=== PATIENT | male | born 1995 | race Caucasian/White ===

== ENCOUNTER 2016-04-11 19:45 | Inpatient (IN) | payer MEDICAID, OTHER ==
--- NOTE | 2016-04-11 20:05 | ED ---
General Adult HPI - General Source: patient, police, EMS, RN notes reviewed, old records reviewed Mode of arrival: EMS Limitations: no limitations <Kevin Rivera - Last Filed: 04/11/16 20:13> <Bruno Phan - Last Filed: 04/11/16 22:50> - General Chief complaint: Psychiatric Symptoms Stated complaint: mental health Time Seen by Provider: 04/11/16 19:56 - History of Present Illness Initial comments: This is a 21-year-old male here for evaluation of suicidal thoughts, suicidal complaints. Patient did coming today. Patient's were in by EMS and PD his neighbor her bystander called for patient suicidal issues, patient is petition for psychiatric evaluation patient denies drugs or alcohol abuse patient does have recent finding of mass which could be recurrence of testicular cancer ( Kevin Rivera) - Related Data Home Medications Medication Instructions Recorded Confirmed No Known Home Medications [No 04/11/16 04/11/16 Known Home Medications] Allergies Allergy/AdvReac Type Severity Reaction Status Date / Time venom-honey bee Allergy Swelling Verified 04/11/16 20:13 [bee venom (honey bee)] Review of Systems ROS Other: All systems not noted in ROS Statement are negative. <Kevin Rivera - Last Filed: 04/11/16 20:13> ROS Other: All systems not noted in ROS Statement are negative. <Bruno Phan - Last Filed: 04/11/16 22:50> ROS Statement: Those systems with pertinent positive or pertinent negative responses have been documented in the HPI. Past Medical History Past Medical History: No Reported History History of Any Multi-Drug Resistant Organisms: None Reported Additional Past Surgical History / Comment(s): testicular sx, ear tubes Past Psychological History: Depression Smoking Status: Current every day smoker Past Alcohol Use History: None Reported Past Drug Use History: Marijuana <Kevin Rivera - Last Filed: 04/11/16 20:13> General Exam Limitations: no limitations General appearance: alert, in no apparent distress Head exam: Present: atraumatic, normocephalic, normal inspection Eye exam: Present: normal appearance, PERRL, EOMI. Absent: scleral icterus, conjunctival injection, periorbital swelling ENT exam: Present: normal exam, mucous membranes moist Neck exam: Present: normal inspection. Absent: tenderness, meningismus, lymphadenopathy Respiratory exam: Present: normal lung sounds bilaterally. Absent: respiratory distress, wheezes, rales, rhonchi, stridor Cardiovascular Exam: Present: regular rate, normal rhythm, normal heart sounds. Absent: systolic murmur, diastolic murmur, rubs, gallop, clicks GI/Abdominal exam: Present: soft, normal bowel sounds. Absent: distended, tenderness, guarding, rebound, rigid Extremities exam: Present: normal inspection, full ROM, normal capillary refill. Absent: tenderness, pedal edema, joint swelling, calf tenderness Back exam: Present: normal inspection Neurological exam: Present: alert, oriented X3, CN II-XII intact Psychiatric exam: Present: normal affect, normal mood Skin exam: Present: warm, dry, intact, normal color. Absent: rash <Kevin Rivera - Last Filed: 04/11/16 20:13> Course <Kevin Rivera - Last Filed: 04/11/16 20:13> <Bruno Phan - Last Filed: 04/11/16 22:50> Vital Signs 04/11/16 19:53 Temperature 98.6 F Pulse Rate 60 Respiratory 18 Rate Blood Pressure 133/79 O2 Sat by Pulse 99 Oximetry - Reevaluation(s) Reevaluation #1: 04/11/16 20:05 Medically clear for evaluation (Kevin Rivera) Reevaluation #2: 04/11/16 22:49 The patient was endorsed to me at our shift change pending evaluation by psychiatry. Patient will be admitted for inpatient treatment I did fill out a clinical certification on the patient. (Bruno Phan) Medical Decision Making - Lab Data Result diagrams: 04/11/16 21:45 04/11/16 21:45 <Bruno Phan - Last Filed: 04/11/16 22:50> - Lab Data Lab Results 04/11/16 04/11/16 04/11/16 Range/Units 21:45 21:45 21:45 WBC 7.0 (3.8-10.6) k/uL RBC 5.36 (4.30-5.90) m/uL Hgb 16.3 (13.0-17.5) gm/dL Hct 48.2 (39.0-53.0) % MCV 90.0 (80.0-100.0) fL MCH 30.3 (25.0-35.0) pg MCHC 33.7 (31.0-37.0) g/dL RDW 12.6 (11.5-15.5) % Plt Count 233 (150-450) k/uL Neutrophils % 53 % Lymphocytes % 36 % Monocytes % 6 % Eosinophils % 2 % Basophils % 0 % Neutrophils # 3.7 (1.3-7.7) k/uL Lymphocytes # 2.5 (1.0-4.8) k/uL Monocytes # 0.4 (0-1.0) k/uL Eosinophils # 0.1 (0-0.7) k/uL Basophils # 0.0 (0-0.2) k/uL Sodium 143 (137-145) mmol/L Potassium 4.0 (3.5-5.1) mmol/L Chloride 102 (98-107) mmol/L Carbon Dioxide 28 (22-30) mmol/L Anion Gap 13 mmol/L BUN 14 (9-20) mg/dL Creatinine 0.82 (0.66-1.25) mg/dL Est GFR (MDRD) Af Amer >60 (>60 ml/min/1.73 sqM) Est GFR (MDRD) Non-Af >60 (>60 ml/min/1.73 sqM) Glucose 93 (74-99) mg/dL Calcium 10.6 H (8.4-10.2) mg/dL Total Bilirubin 0.9 (0.2-1.3) mg/dL AST 34 (17-59) U/L ALT 60 (21-72) U/L Alkaline Phosphatase 65 (38-126) U/L Total Protein 8.6 H (6.3-8.2) g/dL Albumin 5.1 H (3.5-5.0) g/dL Urine Opiates Screen Not Detected (NotDetected) Ur Oxycodone Screen Not Detected (NotDetected) Urine Methadone Screen Not Detected (NotDetected) Ur Propoxyphene Screen Not Detected (NotDetected) Ur Barbiturates Screen Not Detected (NotDetected) U Tricyclic Antidepress Not Detected (NotDetected) Ur Phencyclidine Scrn Not Detected (NotDetected) Ur Amphetamines Screen Not Detected (NotDetected) U Methamphetamines Scrn Not Detected (NotDetected) U Benzodiazepines Scrn Detected H (NotDetected) Urine Cocaine Screen Not Detected (NotDetected) U Marijuana (THC) Screen Detected H (NotDetected) Disposition <Kevin Rivera - Last Filed: 04/11/16 20:13> <Bruno Phan - Last Filed: 04/11/16 22:50> Clinical Impression: Depression, Suicidal ideation Disposition: TRANSFER TO PSYCH HOSP/UNIT Condition: Stable
[2016-04-11 21:54] LABS: Basophils % (A) 0 %; CH 31.4; CHCM 35.1; Eosinophils # (A) 0.1 k/uL (0-0.7); Eosinophils % (A) 2 %; HCT 48.2 % (39.0-53.0); HDW 2.58; HGB 16.3 gm/dL (13.0-17.5); Luc # (Auto) 0.19; Luc % (Auto) 3; Lymphocytes # (A) 2.5 k/uL (1.0-4.8); Lymphocytes % (A) 36 %; MCH 30.3 pg (25.0-35.0); MCHC 33.7 g/dL (31.0-37.0); Mean Platelet Volume 6.8; Monocytes # (A) 0.4 k/uL (0-1.0); Monocytes % (A) 6 %; Neutrophils # (A) 3.7 k/uL (1.3-7.7); Neutrophils % (A) 53 %; RBC 5.36 m/uL (4.30-5.90); RDW 12.6 % (11.5-15.5); WBC (Perox) 6.76
[2016-04-11 22:05] LABS: ALT 60 U/L (21-72); AST 34 U/L (17-59); Alkaline Phosphatase 65 U/L (38-126); Anion Gap 13 mmol/L; Blood Urea Nitrogen 14 mg/dL (9-20); Calcium 10.6 mg/dL (8.4-10.2); Carbon Dioxide 28 mmol/L (22-30); Chloride 102 mmol/L (98-107); Glucose 93 mg/dL (74-99); Non-African American GFR(MDRD) >60 (>60 ml/min/1.73 sqM); Sodium 143 mmol/L (137-145); Total Bilirubin 0.9 mg/dL (0.2-1.3); Total Protein 8.6 g/dL (6.3-8.2)
[2016-04-11 22:34] LABS: Hepatitis B Surface Ag Index 0.09
[2016-04-11 22:39] LABS: Hepatitis B Core IgM Index 0.07
[2016-04-11 22:52] LABS: Hepatitis C Virus IgG Ab Reactive (Negative)
[2016-04-11] MEDS ORDERED: MAGNESIUM HYDROXIDE 2,400 MG/10 ML CUP PO PRN (23:56)
[2016-04-11] MEDS ORDERED: MAG HYDROX/AL HYDROX/SIMETH 30 ML CUP PO PRN (23:56)
[2016-04-11] MEDS ORDERED: ACETAMINOPHEN TAB 325 MG TAB PO PRN (23:56)
[2016-04-11] MEDS ORDERED: LORazepam 2 MG/ML SYRINGE IM PRN (23:58)
[2016-04-12 00:16] LABS: Appearance,Urine Clear (Clear); Bilirubin,Urine Negative (Negative); Glucose,Urine (UA) Negative (Negative); Ketones,Urine Negative (Negative); Leukocyte Esterase,Urine Negative (Negative); Nitrite,Urine Negative (Negative); Protein,Urine Negative (Negative); Specific Gravity,Urine 1.018 (1.001-1.035); UA Billing (MACRO vs. MICRO) CHEM; Urobilinogen,Urine <2.0 mg/dL (<2.0)
--- NOTE | 2016-04-12 13:20 | P.HP ---
Psychiatric H&P - . H&P Date: 04/12/16 History & Physical: IDENTIFYING DATA: He is a 21-year-old single male who presented to unit involuntarily. HISTORY OF PRESENT ILLNESS: A commercial escrow officer completed a Petition/Application for Hospitalization. On the petition the commercial escrow officer wrote "received 911 call-reporting that Quang had text that her friend, advising that he was going to slit his throat. Upon arrival I observe Quang picking up a razor blade and cutting his neck and arm. I forced entry into his residence and took him into protective custody. Quang stated he wanted to kill himself due to recent cancer diagnosis." Vince stated that he become acutely distressed on Saturday after his family physician told him that he might have testicular cancer. He stated he did not feel he had anyone with him to talk about his concerns. While he was communicating with friends on Facebook he talked about his worries including histhought of not wanting to live if he has cancer. His friend took his concerns seriously and contacted emergency services. He stated that he made superficial stressor lacerations to his arm and the back of the neck because he not tolerate the level of emotional distress. He denied that the intent was to end his life. He denied that he had thoughts of or suicide prior to the physician's visit. He denied prior suicide attempts and denied engaging in prior nonlethal self-harm such as cutting. His other concerns including living with his mother and her boyfriend and delinquent child support payments. He denied current feelings of sadness, hopelessness or helplessness. He denied psychotic symptoms such as auditory or visual hallucinations, ideas reference, thought insertion or thought broadcasting. He described increased anxiety since the physician's visit but denied symptoms suggestive of panic attack. He denied symptoms suggestive of obsessions or compulsions. He smokes marijuana daily basis and "occasionally" takes benzodiazepines. He denied recent use of opiates, amphetamines, methamphetamine or cocaine. His urine drug screen was positive for benzodiazepines and marijuana. He completed the Navas Depression Inventory. His total score was 11 consistent with minimal symptoms of depression. The only item that he rated as moderate was changes in appetite. On the suicide question he selected item 0 - "I don't have any thoughts of killing myself." PAST PSYCHIATRIC HISTORY: He was hospitalized twice ([facility]) as a child beginning at age 6 or 7 for behavioral problems. He met with a counselor after discharge from hospitals and intermittently into his adolescence. He denied that he had been prescribed psychotropic medications including stimulant medications. PAST MEDICAL HISTORY: He is a purported history of testicular cancer diagnosed when he was an . He diagnosed with hepatitis C "about 2 years ago". He stated that he has not been treated for the hepatitis C because his insurance will not cover the medications. ALLERGIES: He has no drug ALLERGIES SUBSTANCE USE HISTORY: He has a history of marijuana, cocaine, crack cocaine, methamphetamine and heroin abuse. He stated that he has not used crack cocaine , methamphetamine or heroin and "1-2 years". He began smoking marijuana in the sixth grade. In the 10th grade and began using crack cocaine. He used heroin for approximately 3-4 months. He stated that he injected heroin "a few times". He stopped using all drugs (with the exception of marijuana) after learning that his girlfriend was (one half years ago). He smokes marijuana daily basis and does not perceive his marijuana use as a problem. He he believes that he contracted hepatitis C from his heroin use. He participated in a substance abuse program while he was in the [facility]. He has attended . FAMILY PSYCHIATRIC/SUBSTANCE USE HISTORY: He is unaware of family history of mental illness LEGAL HISTORY: He denied any is currently on probation, parole or has pending charges. He is convicted with breaking and entry and grand theft auto when he was 15 or 16 years old. He [facility] a [facility]. He [facility] 4 [facility]. Once he turned 17 he was transferred to [facility] then sentence to [address] [facility]. He described difficulties in [facility] with frequent conflict and fights with guards. SOCIAL HISTORY: He was born and raised in the [place] area to single mother. He has 2 stepsisters from mother's prior marriage. He alleged that his father was not involved in his upbringing. He did not complete high school have been convicted of felony in 10th grade. He did not attend high school while he was in [facility] and has not obtained a GED. He has one child, Esteban, who is 7 months old and in the custody of her biological mother. He described a conflictual relationship with the child's mother. He moved back to [place] about 2 weeks prior to this admission. He stated that lately 2015 he went to [place] to live temporarily with his sisters because she was concerned that he would be incarcerated for nonpayment of child support. He spent a "few weeks" in [place] with friends before returning to [place]. He has been living with his mother and her since he returned to [place]. He recently found a part-time job with a [employer]. MENTAL STATUS EXAM: He presented as a casually groomed 21-year-old male who had superficial abrasions on his right forearm in the back of his neck. He maintained eye contact and attended the interview. He had no prominent physical abnormalities. He had a blunted but bright facial expression. He was alert and oriented to person, place and time. He showed no abnormality of psychomotor activity. He had no abnormal involuntary movements. His gait was slow but steady. His speech was spontaneous with normal rate but decreased rhythm. His affect was dysphoric. He denied suicidal ideation or wishes. He denied homicidal ideation. She denied depressive cognitions such as hopelessness, helplessness or worthlessness. He ruminated about the hospitalization and the effect that it would have on his recent unemployment. He denied obsessions or compulsions. He did not express ideas reference or paranoid ideation. His thinking was concrete but his associations were coherent and logical. He did not demonstrate clang associations, perseveration, neologisms or blocking. He denied hallucinations did not appear to be responding to internal stimuli. Global impression of intellect is average. He is aware of the causes of his distress and agreed to referral for outpatient mental health treatment. STRENGTHS: Supportive family, good health, no current legal problems, able to maintain abstinence to heroin, methamphetamine and cocaine, recent unemployment WEAKNESSES: Conflictual relationship with his significant other, recent diagnosis of testicular tumor, history of antisocial behavior, impulsive behavior and poor coping skills. IMPRESSION: He is a 21-year-old single male who presented to unit involuntarily after expressing suicidal thoughts and engaging in nonlethal self- harm behavior. The cuts that he made to his arm and neck are very superficial and did not require first aid or medical intervention. His history of early onset behavioral problems with 2 admissions to child/adolescent units. He also has a history of abuse of several drugs including heroin, methamphetamine and cocaine. He is able to maintain abstinence from these drugs for the last one and half years out of concern for his relationship with his young child. The onset of his acute distress is related to recent diagnosis of testicular tumor. We should treat him an inpatient basis with a combination of multimodal therapy until we can fully appreciate his self-harm risk. 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 History of childhood onset, disorder RECOMMENDATION: Obtained a voluntary admission. Continued suicide precautions with 15 minute checks. Obtain collateral information from family. Consult medicine service for initial physical examination and medical history. Consider an antidepressant. Social work to assist with referral to community mental health services after discharge. Allergies Allergy/AdvReac Type Severity Reaction Status Date / Time venom-honey bee Allergy Swelling Verified 04/11/16 20:13 [bee venom (honey bee)] Vital Signs Temp 97.6 F 04/12/16 06:54 Pulse 52 L 04/12/16 06:54 Resp 18 04/12/16 06:54 BP 108/66 04/12/16 06:54 Pulse Ox 96 04/11/16 23:36 Intake & Output 04/11/16 04/12/16 04/12/16 18:59 06:59 18:59 Weight 55 kg Laboratory Last Values WBC 7.0 k/uL (3.8-10.6) 04/11/16 21:45 RBC 5.36 m/uL (4.30-5.90) 04/11/16 21:45 Hgb 16.3 gm/dL (13.0-17.5) 04/11/16 21:45 Hct 48.2 % (39.0-53.0) 04/11/16 21:45 MCV 90.0 fL (80.0-100.0) 04/11/16 21:45 MCH 30.3 pg (25.0-35.0) 04/11/16 21:45 MCHC 33.7 g/dL (31.0-37.0) 04/11/16 21:45 RDW 12.6 % (11.5-15.5) 04/11/16 21:45 Plt Count 233 k/uL (150-450) 04/11/16 21:45 Neutrophils % 53 % 04/11/16 21:45 Lymphocytes % 36 % 04/11/16 21:45 Monocytes % 6 % 04/11/16 21:45 Eosinophils % 2 % 04/11/16 21:45 Basophils % 0 % 04/11/16 21:45 Neutrophils # 3.7 k/uL (1.3-7.7) 04/11/16 21:45 Lymphocytes # 2.5 k/uL (1.0-4.8) 04/11/16 21:45 Monocytes # 0.4 k/uL (0-1.0) 04/11/16 21:45 Eosinophils # 0.1 k/uL (0-0.7) 04/11/16 21:45 Basophils # 0.0 k/uL (0-0.2) 04/11/16 21:45 Sodium 143 mmol/L (137-145) 04/11/16 21:45 Potassium 4.0 mmol/L (3.5-5.1) 04/11/16 21:45 Chloride 102 mmol/L (98-107) 04/11/16 21:45 Carbon Dioxide 28 mmol/L (22-30) 04/11/16 21:45 Anion Gap 13 mmol/L 04/11/16 21:45 BUN 14 mg/dL (9-20) 04/11/16 21:45 Creatinine 0.82 mg/dL (0.66-1.25) 04/11/16 21:45 Est GFR (MDRD) Af Amer >60 (>60 ml/min/1.73 sqM) 04/11/16 21:45 Est GFR (MDRD) Non-Af >60 (>60 ml/min/1.73 sqM) 04/11/16 21:45 Glucose 93 mg/dL (74-99) 04/11/16 21:45 Calcium 10.6 mg/dL (8.4-10.2) H 04/11/16 21:45 Total Bilirubin 0.9 mg/dL (0.2-1.3) 04/11/16 21:45 AST 34 U/L (17-59) 04/11/16 21:45 ALT 60 U/L (21-72) 04/11/16 21:45 Alkaline Phosphatase 65 U/L (38-126) 04/11/16 21:45 Total Protein 8.6 g/dL (6.3-8.2) H 04/11/16 21:45 Albumin 5.1 g/dL (3.5-5.0) H 04/11/16 21:45 TSH 3.320 mIU/L (0.465-4.680) 04/11/16 21:45 Urine Color Yellow 04/11/16 21:45 Urine Appearance Clear (Clear) 04/11/16 21:45 Urine pH 7.0 (5.0-8.0) 04/11/16 21:45 Ur Specific [place] 1.018 (1.001-1.035) 04/11/16 21:45 Urine Protein Negative (Negative) 04/11/16 21:45 Urine Glucose (UA) Negative (Negative) 04/11/16 21:45 Urine Ketones Negative (Negative) 04/11/16 21:45 Urine Blood Negative (Negative) 04/11/16 21:45 Urine Nitrate Negative (Negative) 04/11/16 21:45 Urine Bilirubin Negative (Negative) 04/11/16 21:45 Urine Urobilinogen <2.0 mg/dL (<2.0) 04/11/16 21:45 Ur Leukocyte Esterase Negative (Negative) 04/11/16 21:45 Urine Opiates Screen Not Detected (NotDetected) 04/11/16 21:45 Ur Oxycodone Screen Not Detected (NotDetected) 04/11/16 21:45 Urine Methadone Screen Not Detected (NotDetected) 04/11/16 21:45 Ur Propoxyphene Screen Not Detected (NotDetected) 04/11/16 21:45 Ur Barbiturates Screen Not Detected (NotDetected) 04/11/16 21:45 U Tricyclic Antidepress Not Detected (NotDetected) 04/11/16 21:45 Ur Phencyclidine Scrn Not Detected (NotDetected) 04/11/16 21:45 Ur Amphetamines Screen Not Detected (NotDetected) 04/11/16 21:45 U Methamphetamines Scrn Not Detected (NotDetected) 04/11/16 21:45 U Benzodiazepines Scrn Detected (NotDetected) H 04/11/16 21:45 Urine Cocaine Screen Not Detected (NotDetected) 04/11/16 21:45 U Marijuana (THC) Screen Detected (NotDetected) H 04/11/16 21:45 Hepatitis A IgM Ab NEGATIVE 04/11/16 21:45 Hep Bs Antigen Negative 04/11/16 21:45 Hep B Core IgM Ab NEGATIVE 04/11/16 21:45 Hep C IgG Ab Reactive (Negative) 04/11/16 21:45 04/12/16 08:16 04/12/16 11:05 04/12/16 11:59
[2016-04-12 13:25] VITALS: RESP 16; BMI 19.5
[2016-04-12] MEDS: NICOTINE 21MG/24HR PATCH TRANSDERM SCH (13:28)
--- NOTE | 2016-04-12 14:17 | P.CONS ---
History of Present Illness - Reason for Consult Consult date: 04/12/16 Medical management - History of Present Illness This is a 21-year-old male. His primary care physician is Dr. Camacho. He states he follows with Dr. Camacho one time per month. He does have past history of hepatitis C due to IV drug use of heroin, regular marijuana use, tobacco use and dependence. Patient states that he has been feeling down about things and he just wanted to hurt himself and ended up cutting his right forearm. He has not been on any psychiatric meds. He denies any previous mental health unit admissions. He denies any treatment for depression. Regarding the hepatitis C, he states he follows with Dr. Ngo but found out that his insurance did not cover treatment so he stopped going. He states he has been clean from heroin for 2 years. Patient was brought into [facility] emergency center by EMS and police. He was petitioned for psychiatric evaluation. He has been admitted to the mental health unit. Calcium is 10.6 and total protein 8.6, TSH 3.3-0. Urinalysis was negative. Urine drug screen detected benzodiazepines and marijuana. Hepatitis panel C was positive. Review of Systems All systems: negative Constitutional: Denies chills, Denies fever Eyes: denies blurred vision, denies pain Ears, nose, mouth and throat: Denies headache, Denies sore throat Cardiovascular: Denies chest pain, Denies shortness of breath Respiratory: Denies cough Gastrointestinal: Denies abdominal pain, Denies diarrhea, Denies nausea, Denies vomiting Musculoskeletal: Denies myalgias Integumentary: Denies pruritus, Denies rash Neurological: Denies numbness, Denies weakness Psychiatric: Reports depression, Reports hopelessness, Reports suicidal ideation , Denies anxiety Endocrine: Denies fatigue, Denies weight change Past Medical History Past Medical History: No Reported History Additional Past Medical History / Comment(s): Hepatitis C from IV drug use. History of Any Multi-Drug Resistant Organisms: None Reported Additional Past Surgical History / Comment(s): testicular sx, ear tubes Past Psychological History: Depression Smoking Status: Current every day smoker Past Alcohol Use History: None Reported Additional Past Alcohol Use History / Comment(s): Patient is a smoker one and half packs of cigarettes per day since he was 11 years of age. He smokes marijuana on a daily basis. He does not have any medical marijuana card. He denies any alcohol use. He is single and has one son with no major medical problems. Patient does have history of paranoid use and has been clean for 2 years. Past Drug Use History: Marijuana - Past Family History Father Additional Family Medical History / Comment(s): Father is age 47 with history of hypertension. Mother Additional Family Medical History / Comment(s): Mother is alive at age 42 and patient does not know any of her medical history. Patient is an only child with no siblings. Medications and Allergies Home Medications Medication Instructions Recorded Confirmed Type No Known Home Medications [No 04/11/16 04/11/16 History Known Home Medications] Allergies Allergy/AdvReac Type Severity Reaction Status Date / Time venom-honey bee Allergy Swelling Verified 04/11/16 20:13 [bee venom (honey bee)] Physical Exam Vitals: Vital Signs Temp Pulse Pulse Resp BP BP Pulse Ox 04/12/16 06:54 97.6 F 52 L 18 108/66 04/11/16 23:36 98.1 F 99 20 119/78 96 04/11/16 22:55 98 F 60 18 120/64 99 Intake and Output 04/11/16 04/12/16 04/12/16 22:59 06:59 14:59 Other: Weight 55 kg Gen: This is a 21-year-old male. He is cooperative and appears to be in no acute distress. HEENT: Head is atraumatic, normocephalic. Pupils equal, round. Sclerae is anicteric. NECK: Supple. No JVD. No lymphadenopathy. No thyromegaly. LUNGS: Clear to auscultation. No wheezes or rhonchi. No intercostal retractions. HEART: Regular rate and rhythm. No murmur. ABDOMEN: Soft. Bowel sounds are present. No masses. No tenderness. EXTREMITIES: No pedal edema. No calf tenderness. NEUROLOGICAL: Patient is awake, alert and oriented x3. Cranial nerves 2 through 12 are grossly intact. Results CBC & Chem 7: 04/11/16 21:45 04/11/16 21:45 Assessment and Plan Plan: 1. Depression with suicidal ideation. Patient admitted to the mental health unit. Continue current plan of care. 2. Tobacco use and dependence. Nicotine patch. 3. History of hepatitis C not currently treated. 4. Regular marijuana use. Continue as in #1. 5. History of heroin use, and clean for 2 years. 6. Hypercalcemia of unclear significance. Parathyroid hormone level ordered. Impression and plan of care have been directed as dictated by the signing physician. Geneva Valderrama nurse practitioner acting as scribe for signing physician. Time with Patient: Greater than 30
[2016-04-12] MEDS: LORazepam 1 MG TAB PO PRN ×2 (14:35→22:08)
[2016-04-13 06:32] VITALS: TEMP 97.6
[2016-04-13] MEDS: NICOTINE 21MG/24HR PATCH TRANSDERM SCH (08:52)
[2016-04-13] MEDS: LORazepam 1 MG TAB PO PRN (08:53)
[2016-04-13 10:06] VITALS: BP 152/85; PULSE 81
[2016-04-13 10:26] LABS: ALT 62 U/L (21-72); AST 42 U/L (17-59); Alkaline Phosphatase 67 U/L (38-126); Anion Gap 15 mmol/L; Blood Urea Nitrogen 19 mg/dL (9-20); Calcium 10.8 mg/dL (8.4-10.2); Carbon Dioxide 25 mmol/L (22-30); Chloride 103 mmol/L (98-107); Glucose 93 mg/dL (74-99); Non-African American GFR(MDRD) >60 (>60 ml/min/1.73 sqM); Potassium 4.4 mmol/L (3.5-5.1); Sodium 143 mmol/L (137-145); Total Bilirubin 1.3 mg/dL (0.2-1.3); Total Protein 8.8 g/dL (6.3-8.2)
--- NOTE | 2016-04-13 13:11 | P.DS ---
Providers Date of admission: 04/11/16 22:20 Attending physician: Charles House MD Consults: 04/11/16 23:56 Consult Physician Routine Consulting Provider: Charles Rene Consult Reason/Comments: Follow Up H & P Do you want consulting provider notified?: Yes Primary care physician: Stated None - Discharge Diagnosis(es) (1) Adjustment disorder with mixed disturbance of emotions and conduct Current Visit: Yes Status: Acute Priority: Medium (2) Deliberate self-cutting Current Visit: Yes Status: Acute Priority: Medium Hospital Course: He is a 21-year-old single male who presented to unit involuntarily. A precinct i police sergeant completed a Petition/Application for Hospitalization. On the petition the precinct i police sergeant wrote "received 911 call-reporting that Quang had text that her friend, advising that he was going to slit his throat. Upon arrival I observe Quang picking up a razor blade and cutting his neck and arm. I forced entry into his residence and took him into protective custody. Quang stated he wanted to kill himself due to recent cancer diagnosis." Vince stated that he become acutely distressed on Saturday after his family physician told him that he might have testicular cancer. He stated he did not feel he had anyone with him to talk about his concerns. While he was communicating with friends on Facebook he talked about his worries including histhought of not wanting to live if he has cancer. His friend took his concerns seriously and contacted emergency services. He stated that he made superficial stressor lacerations to his arm and the back of the neck because he not tolerate the level of emotional distress. He denied that the intent was to end his life. He denied that he had thoughts of or suicide prior to the physician's visit. He denied prior suicide attempts and denied engaging in prior nonlethal self-harm such as cutting. His other concerns including living with his mother and her boyfriend and delinquent child support payments. He denied current feelings of sadness, hopelessness or helplessness. He denied psychotic symptoms such as auditory or visual hallucinations, ideas reference, thought insertion or thought broadcasting. He described increased anxiety since the physician's visit but denied symptoms suggestive of panic attack. He denied symptoms suggestive of obsessions or compulsions. He smokes marijuana daily basis and "occasionally" takes benzodiazepines. He denied recent use of opiates, amphetamines, methamphetamine or cocaine. His urine drug screen was positive for benzodiazepines and marijuana. He completed the Navas Depression Inventory. His total score was 11 consistent with minimal symptoms of depression. The only item that he rated as moderate was changes in appetite. On the suicide question he selected item 0 - "I don't have any thoughts of killing myself." He was hospitalized twice ([facility]) as a child beginning at age 6 or 7 for behavioral problems. He met with a counselor after discharge from hospitals and intermittently into his adolescence. He denied that he had been prescribed psychotropic medications including stimulant medications. He is a purported history of testicular cancer diagnosed when he was an infant. He diagnosed with hepatitis C "about 2 years ago". He stated that he has not been treated for the hepatitis C because his insurance will not He has a history of marijuana, cocaine, crack cocaine, methamphetamine and heroin abuse. He stated that he has not used crack cocaine, methamphetamine or heroin and "1-2 years". He began smoking marijuana in the sixth grade. In the 10th grade and began using crack cocaine. He used heroin for approximately 3-4 months. He stated that he injected heroin "a few times". He stopped using all drugs (with the exception of marijuana) after learning that his girlfriend was (one half years ago). He smokes marijuana daily basis and does not perceive his marijuana use as a problem. He he believes that he contracted hepatitis C from his heroin use. He participated in a substance abuse program while he was in the [facility]. He has attended . HOSPITAL COURSE: We admitted him to the psychiatric unit under the care of this technical proposal writer. We provided a biopsychosocial assessment. The delivery consultant geriatric aide completed the initial physical exam and medical history. The geriatric aide diagnosed tobacco use disorder and a history of hepatitis C. The interest did not recommend medical treatment. At admission he denied suicidal ideation, plan or intent and did not meet judicial criteria for involuntary hospitalization. However, he consented to a voluntary admission. We only prescribed lorazepam 1 mg twice a day when necessary because she denied significant symptoms of depression. He was initially reclusive and refused to participate in therapeutic groups and activities. As he became more comfortable with the unit he attended therapeutic groups. He identified living with his mother and her boyfriend as a stress contributing to his self cutting. He spoke with his girlfriend and arrange live with her and their 7-month-old infant after discharge. Throughout the hospitalization he denied thoughts of or suicide. He expressed regret over cutting himself and talked about feeling overwhelmed after his physician told him that he may have testicular cancer. He expressed interest to received outpatient mental health services. He requested a prescription for "something" for anxiety. I explained my reluctance to prescribe him a benzodiazepine given his history of substance use problems. We discuss options and agreed to a trial of Seroquel 25 mg at bedtime for anxiety or sleep. Patient Condition at Discharge: Fair Plan - Discharge Summary New Discharge Prescriptions: Nicotine 21Mg/24Hr Patch [Habitrol] 1 patch TRANSDERM DAILY #14 patch QUEtiapine [SEROquel] 25 mg PO HS #30 tab Discharge Medication List Nicotine 21Mg/24Hr Patch [Habitrol] 1 patch TRANSDERM DAILY #14 patch 04/13/16 [ Rx] QUEtiapine [SEROquel] 25 mg PO HS #30 tab 04/13/16 [Rx] Follow up Appointment(s)/Referral(s): [facility] [Outside] - 04/16/16 2:00 pm (Mariella Please arribe at 1:30 for paper work ) None,Stated [Primary Care Provider] - 1 Week Discharge Disposition: HOME SELF-CARE
[2016-04-13] MEDS ORDERED: QUEtiapine 25 MG TAB PO SCH (21:00)
== END 2016-04-13 14:02 | disposition home or self-care (01) | DRG 882 ==
LOC: EC 19:45 → 3MHU 22:20
PROVIDERS: ADMIT Psychiatry & Neurology Psychiatry; ATTEND Psychiatry & Neurology Psychiatry
DX: F43.25 Adjustment disorder with mixed disturbance of emotions and conduct (principal); R45.851 Suicidal ideations; E83.52 Hypercalcemia; C62.90 Malignant neoplasm of unspecified testis, unspecified whether descended or undescended; X78.9XXA Intentional self-harm by unspecified sharp object, initial encounter; F41.9 Anxiety disorder, unspecified; F13.90 Sedative, hypnotic, or anxiolytic use, unspecified, uncomplicated; F12.90 Cannabis use, unspecified, uncomplicated; B19.20 Unspecified viral hepatitis C without hepatic coma; F17.210 Nicotine dependence, cigarettes, uncomplicated; Z87.898 Personal history of other specified conditions
CPT/HCPCS: 36415; 80053; 80074; 80306; 81003; 82075; 83970; 84443; 85025; 99285

== ENCOUNTER 2017-12-09 16:16 | Emergency (ER) | payer OTHER ==
[2017-12-09 16:52] VITALS: TEMP 98.3
[2017-12-09] MEDS ORDERED: methylPREDNISolone SOD SUCCI 125 MG/2 ML VIAL IV STA (17:33)
[2017-12-09] MEDS ORDERED: SODIUM CHLORIDE 0.9% 1,000 ML IV STA (17:33)
[2017-12-09] MEDS ORDERED: IPRATROPIUM-ALBUTEROL 3 ML NEB INHALATION STA (17:33)
--- NOTE | 2017-12-09 17:37 | ED ---
URI HPI - General Chief Complaint: Upper Respiratory Infection Stated Complaint: COUGHING, CARROLL X 6 WEEKS Time Seen by Provider: 12/09/17 17:20 Source: patient, family, RN notes reviewed Mode of arrival: ambulatory Limitations: no limitations - History of Present Illness Initial Comments: This is a 22-year-old male with a benign past medical history who does smoke one half pack cigarettes per day but no family history or personal history of asthma or lung problems and states he had gas that well for 5 weeks ago sinus infection and cold symptoms he was treated by his private medical doctor with amoxicillin it did seem to clear up for a few days but then he started having a cough and congestion again. He was placed on Augmentin but states he still has chills, cold flashes having trouble breathing he does cough he has phlegm but he can get phlegm up. He did try his mothers inhaler today and it did help somewhat. He denies any chest pain nausea vomiting or other symptoms. No other modifying factors at this time MD Complaint: cough, other - Related Data Previous Rx's Medication Instructions Recorded Nicotine 21Mg/24Hr Patch [Habitrol] 1 patch TRANSDERM DAILY #14 patch 04/13/16 QUEtiapine [SEROquel] 25 mg PO HS #30 tab 04/13/16 Ipratropium/Albuterol Sulfate 2 puff INHALATION QID #1 inhaler 12/09/17 [Combivent Respimat Inhaler] predniSONE 20 mg PO BID #10 tab 12/09/17 Allergies Allergy/AdvReac Type Severity Reaction Status Date / Time venom-honey bee Allergy Swelling Verified 12/09/17 18:52 [bee venom (honey bee)] Review of Systems ROS Statement: Those systems with pertinent positive or pertinent negative responses have been documented in the HPI. ROS Other: All systems not noted in ROS Statement are negative. 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 History of Any Multi-Drug Resistant Organisms: None Reported Past Surgical History: Ear Surgery Additional Past Surgical History / Comment(s): testicular sx, ear tubes Past Anesthesia/Blood Transfusion Reactions: No Reported Reaction Past Psychological History: Depression Smoking Status: Current every day smoker Past Alcohol Use History: None Reported Past Drug Use History: Marijuana - Past Family History Father Additional Family Medical History / Comment(s): Father is age 47 with history of hypertension. Mother Additional Family Medical History / Comment(s): Mother is alive at age 42 and patient does not know any of her medical history. Patient is an only child with no siblings. General Exam - General Exam Comments Initial Comments: This is a well-developed well-nourished awake alert oriented 3 male Limitations: no limitations General appearance: alert, in no apparent distress Head exam: Present: atraumatic, normocephalic, normal inspection Eye exam: Present: normal appearance, PERRL, EOMI. Absent: scleral icterus, conjunctival injection, periorbital swelling ENT exam: Present: normal exam, mucous membranes moist Neck exam: Present: normal inspection. Absent: tenderness, meningismus, lymphadenopathy Respiratory exam: Present: decreased breath sounds. Absent: respiratory distress, wheezes, rales, rhonchi, stridor Cardiovascular Exam: Present: regular rate, normal rhythm, normal heart sounds. Absent: systolic murmur, diastolic murmur, rubs, gallop, clicks GI/Abdominal exam: Present: soft, normal bowel sounds. Absent: distended, tenderness, guarding, rebound, rigid Extremities exam: Present: normal inspection, full ROM, normal capillary refill. Absent: tenderness, pedal edema, joint swelling, calf tenderness Back exam: Present: normal inspection Neurological exam: Present: alert, oriented X3, CN II-XII intact Psychiatric exam: Present: normal affect, normal mood Skin exam: Present: warm, dry, intact, normal color. Absent: rash Course Vital Signs 12/09/17 12/09/17 12/09/17 16:51 17:14 17:30 Temperature 98.3 F Pulse Rate 84 Respiratory 20 22 22 Rate Blood Pressure 125/71 116/80 O2 Sat by Pulse 99 97 Oximetry 12/09/17 12/09/17 12/09/17 18:08 18:17 18:30 Temperature Pulse Rate 68 76 Respiratory Rate Blood Pressure 104/75 O2 Sat by Pulse 99 Oximetry - Reevaluation(s) Reevaluation #1: 12/09/17 17:37 We did discuss smoking cessation including the risks and benefits thereof. The conversation lasting 3.1 minutes. Medical Decision Making - Medical Decision Making Reevaluation patient reveals increased aeration no wheezing he feels much improved this time patient will be discharged with instructions for a Combivent as well as oral steroids. She is follow-up with Dr. prado. We did again discuss smoking cessation he is not interested at this time. - Lab Data Result diagrams: 12/09/17 17:56 12/09/17 17:56 Lab Results 12/09/17 12/09/17 12/09/17 Range/Units 17:56 17:56 17:56 WBC 7.2 (3.8-10.6) k/uL RBC 5.29 (4.30-5.90) m/uL Hgb 16.3 (13.0-17.5) gm/dL Hct 47.4 (39.0-53.0) % MCV 89.6 (80.0-100.0) fL MCH 30.7 (25.0-35.0) pg MCHC 34.3 (31.0-37.0) g/dL RDW 12.6 (11.5-15.5) % Plt Count 280 (150-450) k/uL Neutrophils % 62 % Lymphocytes % 29 % Monocytes % 5 % Eosinophils % 3 % Basophils % 0 % Neutrophils # 4.5 (1.3-7.7) k/uL Lymphocytes # 2.1 (1.0-4.8) k/uL Monocytes # 0.4 (0-1.0) k/uL Eosinophils # 0.2 (0-0.7) k/uL Basophils # 0.0 (0-0.2) k/uL PT (9.0-12.0) sec INR (<1.2) APTT (22.0-30.0) sec Sodium 142 (137-145) mmol/L Potassium 4.9 (3.5-5.1) mmol/L Chloride 104 (98-107) mmol/L Carbon Dioxide 28 (22-30) mmol/L Anion Gap 10 mmol/L BUN 14 (9-20) mg/dL Creatinine 0.69 (0.66-1.25) mg/dL Est GFR (CKD-EPI)AfAm >90 (>60 ml/min/1.73 sqM) Est GFR (CKD-EPI)NonAf >90 (>60 ml/min/1.73 sqM) Glucose 86 (74-99) mg/dL Calcium 10.2 (8.4-10.2) mg/dL Magnesium 2.0 (1.6-2.3) mg/dL Total Bilirubin 0.4 (0.2-1.3) mg/dL AST 83 H (17-59) U/L ALT 160 H (21-72) U/L Alkaline Phosphatase 61 (38-126) U/L Total Creatine Kinase 65 (55-170) U/L CK-MB (CK-2) 0.3 (0.0-2.4) ng/mL CK-MB (CK-2) Rel Index 0.5 Troponin I <0.012 (0.000-0.034) ng/mL NT-Pro-B Natriuret Pep pg/mL Total Protein 8.0 (6.3-8.2) g/dL Albumin 4.8 (3.5-5.0) g/dL 12/09/17 12/09/17 Range/Units 17:56 17:56 WBC (3.8-10.6) k/uL RBC (4.30-5.90) m/uL Hgb (13.0-17.5) gm/dL Hct (39.0-53.0) % MCV (80.0-100.0) fL MCH (25.0-35.0) pg MCHC (31.0-37.0) g/dL RDW (11.5-15.5) % Plt Count (150-450) k/uL Neutrophils % % Lymphocytes % % Monocytes % % Eosinophils % % Basophils % % Neutrophils # (1.3-7.7) k/uL Lymphocytes # (1.0-4.8) k/uL Monocytes # (0-1.0) k/uL Eosinophils # (0-0.7) k/uL Basophils # (0-0.2) k/uL PT 9.7 (9.0-12.0) sec INR 1.0 (<1.2) APTT 25.3 (22.0-30.0) sec Sodium (137-145) mmol/L Potassium (3.5-5.1) mmol/L Chloride (98-107) mmol/L Carbon Dioxide (22-30) mmol/L Anion Gap mmol/L BUN (9-20) mg/dL Creatinine (0.66-1.25) mg/dL Est GFR (CKD-EPI)AfAm (>60 ml/min/1.73 sqM) Est GFR (CKD-EPI)NonAf (>60 ml/min/1.73 sqM) Glucose (74-99) mg/dL Calcium (8.4-10.2) mg/dL Magnesium (1.6-2.3) mg/dL Total Bilirubin (0.2-1.3) mg/dL AST (17-59) U/L ALT (21-72) U/L Alkaline Phosphatase (38-126) U/L Total Creatine Kinase (55-170) U/L CK-MB (CK-2) (0.0-2.4) ng/mL CK-MB (CK-2) Rel Index Troponin I (0.000-0.034) ng/mL NT-Pro-B Natriuret Pep 30 pg/mL Total Protein (6.3-8.2) g/dL Albumin (3.5-5.0) g/dL - EKG Data -: EKG Interpreted by Me EKG shows normal: sinus rhythm, axis, intervals, QRS complexes, ST-T waves (I did review the EKG there is a normal sinus rhythm a 73. Interval 120 QRS duration 96 QT since QTC 370/416 is is normal-appearing EKG.) Rate: normal - Radiology Data Radiology results: report reviewed (I did review the imaging and report no acute findings.), image reviewed Disposition Clinical Impression: Asthmatic bronchitis, Acute bronchospasm, Smoking Disposition: HOME SELF-CARE Condition: Good Instructions: Asthma (ED), Acute Bronchitis (ED), How to Stop Smoking (ED), Bronchospasm (ED) Prescriptions: Ipratropium/Albuterol Sulfate [Combivent Respimat Inhaler] 2 puff INHALATION QID #1 inhaler predniSONE 20 mg PO BID #10 tab Is patient prescribed a controlled substance at d/c from ED?: No Referrals: Juan Manuel Camacho DO [Primary Care Provider] - 1-2 days
[2017-12-09 18:19] LABS: Basophils % (A) 0 %; Eosinophils # (A) 0.2 k/uL (0-0.7); Eosinophils % (A) 3 %; HCT 47.4 % (39.0-53.0); HGB 16.3 gm/dL (13.0-17.5); Lymphocytes # (A) 2.1 k/uL (1.0-4.8); Lymphocytes % (A) 29 %; MCH 30.7 pg (25.0-35.0); MCHC 34.3 g/dL (31.0-37.0); MCV 89.6 fL (80.0-100.0); Mean Platelet Volume 7.1; Monocytes # (A) 0.4 k/uL (0-1.0); Monocytes % (A) 5 %; Neutrophils # (A) 4.5 k/uL (1.3-7.7); Neutrophils % (A) 62 %; Platelet Count 280 k/uL (150-450); RBC 5.29 m/uL (4.30-5.90); RDW 12.6 % (11.5-15.5); WBC 7.2 k/uL (3.8-10.6)
[2017-12-09 18:28] LABS: ALT 160 U/L (21-72); AST 83 U/L (17-59); Albumin 4.8 g/dL (3.5-5.0); Alkaline Phosphatase 61 U/L (38-126); Anion Gap 10 mmol/L; Blood Urea Nitrogen 14 mg/dL (9-20); Calcium 10.2 mg/dL (8.4-10.2); Carbon Dioxide 28 mmol/L (22-30); Chloride 104 mmol/L (98-107); Glucose 86 mg/dL (74-99); Potassium 4.9 mmol/L (3.5-5.1); Sodium 142 mmol/L (137-145); Total Bilirubin 0.4 mg/dL (0.2-1.3)
[2017-12-09 18:30] LABS: Partial Thromboplastin Time 25.3 sec (22.0-30.0); Prothrombin Time 9.7 sec (9.0-12.0)
[2017-12-09 18:32] LABS: Creatine Kinase 65 U/L (55-170)
[2017-12-09 18:45] LABS: Creatine Kinase MB 0.3 ng/mL (0.0-2.4); Troponin I <0.012 ng/mL (0.000-0.034)
--- NOTE | 2017-12-09 19:14 | XR ---
EXAMINATION: XR chest 2V DATE AND TIME: 12/09/2017 6:28 PM CLINICAL INDICATION: difficulty breathing TECHNIQUE: PA and lateral COMPARISON: None. FINDINGS: The lungs are clear. The pleural spaces are negative. The cardiac silhouette is not enlarged. The remainder of the mediastinal silhouette is unremarkable. The skeletal structures and soft tissues are negative for acute findings. IMPRESSION: NO ACUTE PROCESS.
[2017-12-09 20:03] VITALS: BP 121/82; PULSE 67; RESP 18
== END 2017-12-09 20:07 | disposition home or self-care (01) ==
LOC: EC 16:16
DX: J45.909 Unspecified asthma, uncomplicated (principal); F17.210 Nicotine dependence, cigarettes, uncomplicated; Z98.890 Other specified postprocedural states; Z91.030 Bee allergy status
CPT/HCPCS: 36415; 94640; 93005; 83880; 80053; 82550; 82553; 83735; 84484; 85025; 85610; 85730; 87040; 71046; 99285; 96374; 96361 ×2; 99406; J2930

== ENCOUNTER 2019-05-06 19:21 | Emergency (ER) | payer OTHER ==
[2019-05-06 19:38] VITALS: BP 123/73; PULSE 88; RESP 18; TEMP 98.6
--- NOTE | 2019-05-06 22:15 | ED ---
Male Urogenital HPI - General Chief complaint: Urogenital Stated complaint: Groin Swelling Time Seen by Provider: 05/06/19 21:02 Source: patient Mode of arrival: ambulatory Limitations: no limitations - History of Present Illness Initial comments: Patient is a 24-year-old male presenting to emergency Department with complaints of penile swelling 1 day. Patient states he went to use the bathroom this morning and noticed the shaft of his penis appeared to be swollen. There has been no penile discharge, erythema, pain. He states throughout the day he feels like it is getting bigger. He denies any injuries or trauma to the area. He denies concerns for STDs. He denies fever, chills, nausea, vomiting. He has no other complaints at this time. Upon arrival to the ER, his vital signs are stable. - Related Data Previous Rx's Medication Instructions Recorded Nicotine 21Mg/24Hr Patch [Habitrol] 1 patch TRANSDERM DAILY #14 patch 04/13/16 QUEtiapine [SEROquel] 25 mg PO HS #30 tab 04/13/16 Ipratropium/Albuterol Sulfate 2 puff INHALATION QID #1 inhaler 12/09/17 [Combivent Respimat Inhaler] predniSONE [Deltasone] 20 mg PO BID #10 tab 12/09/17 Allergies Allergy/AdvReac Type Severity Reaction Status Date / Time venom-honey bee Allergy Swelling Verified 05/06/19 19:37 [bee venom (honey bee)] Review of Systems ROS Statement: Those systems with pertinent positive or pertinent negative responses have been documented in the HPI. ROS Other: All systems not noted in ROS Statement are negative. 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 History of Any Multi-Drug Resistant Organisms: None Reported Past Surgical History: Ear Surgery Additional Past Surgical History / Comment(s): testicular sx, ear tubes Past Anesthesia/Blood Transfusion Reactions: No Reported Reaction Past Psychological History: Anxiety, Bipolar, Depression Smoking Status: Current every day smoker Past Alcohol Use History: None Reported Past Drug Use History: Marijuana - Past Family History Father Additional Family Medical History / Comment(s): Father is age 47 with history of hypertension. Mother Additional Family Medical History / Comment(s): Mother is alive at age 42 and patient does not know any of her medical history. Patient is an only child with no siblings. General Exam - General Exam Comments Initial Comments: GENERAL: Well-appearing, well-nourished and in no acute distress. HEAD: Atraumatic, normocephalic. EYES: Pupils equal round and reactive to light, extraocular movements intact, sclera anicteric, conjunctiva are normal. ENT: Moist mucous membranes. NECK: Normal range of motion, supple without lymphadenopathy or JVD. LUNGS: Breath sounds clear to auscultation bilaterally and equal. No wheezes rales or rhonchi. HEART: Regular rate and rhythm without murmurs, rubs or gallops. ABDOMEN: Soft, nontender, normoactive bowel sounds. No guarding, no rebound. No masses appreciated. : Normal external exam, no erythema, no penile discharge. No pain with palpation of the shaft of the penis. EXTREMITIES: Normal range of motion, no pitting or edema. No clubbing or cyanosis. NEUROLOGICAL: Normal speech, normal gait. SKIN: Warm, Dry, normal turgor, no rashes or lesions noted. Limitations: no limitations Course Vital Signs 05/06/19 19:35 Temperature 98.6 F Pulse Rate 88 Respiratory 18 Rate Blood Pressure 123/73 O2 Sat by Pulse 99 Oximetry Medical Decision Making - Medical Decision Making Patient is a 24-year-old male presenting with swelling to the shaft of his penis since morning. On exam there are no acute abnormalities seen. No infectious process. Urine is normal. Gonorrhea and chlamydia are pending at this time. Patient is requesting to be discharged as he needs to catch a bus. I discussed with patient that is just not appear to be infectious in nature. If symptoms persist she can follow up with urology. He is in agreement with this plan of care. Return parameters were discussed with the patient and he verbalized understanding. Case discussed with Dr. Mccloud. - Lab Data Lab Results 05/06/19 Range/Units 21:40 Urine Color Yellow Urine Appearance Cloudy (Clear) Urine pH 8.0 (5.0-8.0) Ur Specific [place] 1.019 (1.001-1.035) Urine Protein Trace H (Negative) Urine Glucose (UA) Negative (Negative) Urine Ketones Negative (Negative) Urine Blood Negative (Negative) Urine Nitrite Negative (Negative) Urine Bilirubin Negative (Negative) Urine Urobilinogen 2.0 (<2.0) mg/dL Ur Leukocyte Esterase Negative (Negative) Urine RBC <1 (0-5) /hpf Urine WBC 1 (0-5) /hpf Amorphous Sediment Rare H (None) /hpf Disposition Clinical Impression: Penile swelling Disposition: HOME SELF-CARE Condition: Stable Instructions (If sedation given, give patient instructions): Normal Exam (ED) Additional Instructions: Please return to the Emergency Department if symptoms worsen or any other concerns. Is patient prescribed a controlled substance at d/c from ED?: No Referrals: Juan Manuel Camacho DO [Primary Care Provider] - 1-2 days Kamari Cho MD [STAFF PHYSICIAN] - 1-2 days
[2019-05-06 22:16] LABS: Amorphous Sediment,Urine Rare /hpf; Appearance,Urine Cloudy (Clear); Bilirubin,Urine Negative (Negative); Blood,Urine Negative (Negative); Color,Urine Yellow; Glucose,Urine (UA) Negative (Negative); Ketones,Urine Negative (Negative); Leukocyte Esterase,Urine Negative (Negative); Nitrite,Urine Negative (Negative); Protein,Urine Trace (Negative); RBC,Urine <1 /hpf (0-5); Specific Gravity,Urine 1.019 (1.001-1.035); WBC,Urine 1 /hpf (0-5)
[2019-05-08 16:16] LABS: C. trachomatis,PCR Negative (Neg,Equiv); Chlamydia trachomatis Source Urine; N. gonorrhoeae,PCR Negative (Neg,Equiv); Neisseria Source Urine
== END 2019-05-06 22:17 | disposition home or self-care (01) ==
LOC: EC 19:21
DX: N48.89 Other specified disorders of penis (principal); F17.200 Nicotine dependence, unspecified, uncomplicated; Z91.030 Bee allergy status; B19.20 Unspecified viral hepatitis C without hepatic coma
CPT/HCPCS: 81001; 87491; 87591; 99283

== ENCOUNTER 2020-05-18 02:22 | Inpatient (IN) | payer OTHER ==
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
[2020-05-18 03:16] LABS: Basophils % (A) 0 %; Eosinophils # (A) 0.2 k/uL (0-0.7); Eosinophils % (A) 2 %; HCT 43.8 % (39.0-53.0); Lymphocytes # (A) 2.2 k/uL (1.0-4.8); Lymphocytes % (A) 21 %; MCH 30.8 pg (25.0-35.0); MCHC 34.2 g/dL (31.0-37.0); MCV 89.9 fL (80.0-100.0); Mean Platelet Volume 7.7; Monocytes # (A) 0.7 k/uL (0-1.0); Monocytes % (A) 7 %; Neutrophils # (A) 7.3 k/uL (1.3-7.7); Neutrophils % (A) 70 %; Platelet Count 252 k/uL (150-450); RBC 4.87 m/uL (4.30-5.90); RDW 12.4 % (11.5-15.5); WBC 10.5 k/uL (3.8-10.6)
[2020-05-18] MEDS ORDERED: MORPHINE SULFATE 4 MG/ML SYRINGE IVP STA (03:30)
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
[2020-05-18 03:46] LABS: ALT 141 U/L (4-49); AST 75 U/L (17-59); African American GFR (CKD) >90 (>60 ml/min/1.73 sqM); Albumin 4.5 g/dL (3.5-5.0); Alkaline Phosphatase 75 U/L (38-126); Anion Gap 6 mmol/L; Blood Urea Nitrogen 11 mg/dL (9-20); Calcium 9.7 mg/dL (8.4-10.2); Carbon Dioxide 31 mmol/L (22-30); Chloride 99 mmol/L (98-107); Glucose 120 mg/dL (74-99); Non-African American GFR(CKD) >90 (>60 ml/min/1.73 sqM); Potassium 3.7 mmol/L (3.5-5.1); Sodium 136 mmol/L (137-145); Total Bilirubin 0.7 mg/dL (0.2-1.3); Total Protein 7.2 g/dL (6.3-8.2)
[2020-05-18] MEDS ORDERED: ONDANSETRON 4 MG/2 ML VIAL IVP PRN (03:50)
[2020-05-18] MEDS ORDERED: HYDROmorphone 0.5 MG/0.5 ML SYRINGE IVP PRN (03:50)
[2020-05-18] MEDS ORDERED: MAG HYDROX/AL HYDROX/SIMETH 30 ML CUP PO PRN (03:50)
[2020-05-18] MEDS ORDERED: NALOXONE 0.4 MG/ML 1 ML VIAL IV PRN (03:50)
[2020-05-18] MEDS ORDERED: ACETAMINOPHEN TAB 325 MG TAB PO PRN (03:50)
[2020-05-18] MEDS ORDERED: MAGNESIUM HYDROXIDE 2,400 MG/10 ML CUP PO PRN (03:50)
[2020-05-18] MEDS ORDERED: LORazepam 2 MG/ML INJ IV PRN (03:50)
[2020-05-18] MEDS ORDERED: SODIUM CHLORIDE 0.9% 1,000 ML IV SCH (04:00)
[2020-05-18] MEDS ORDERED: FAMOTIDINE 20 MG TAB PO SCH (09:00)
[2020-05-18] MEDS ORDERED: HYDROcodone/APAP 5-325MG 1 EACH TAB PO PRN (10:23)
[2020-05-18 11:07] VITALS: TEMP 97.8
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
[2020-05-18] MEDS: HYDROmorphone 1 MG/ML 1 ML SYRINGE IVP PRN ×2 (12:28→15:22)
[2020-05-18 12:47] LABS: Appearance,Urine Clear (Clear); Bilirubin,Urine Negative (Negative); Blood,Urine Negative (Negative); Color,Urine Yellow; Glucose,Urine (UA) Negative (Negative); Ketones,Urine Negative (Negative); Leukocyte Esterase,Urine Negative (Negative); Nitrite,Urine Negative (Negative); Protein,Urine Negative (Negative); Specific Gravity,Urine >1.050 (1.001-1.035); Urobilinogen,Urine <2.0 mg/dL (<2.0)
[2020-05-18 14:58] VITALS: BP 114/68; PULSE 66; RESP 18
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
[2020-05-18] MEDS ORDERED: QUEtiapine 25 MG TAB PO SCH (21:00)
== END 2020-05-18 18:25 | disposition left against medical advice (07) | DRG 183 ==
LOC: EC 02:22 → 3SCARD 03:51
PROVIDERS: ADMIT Surgery; ATTEND Surgery
DX: S22.42XA Multiple fractures of ribs, left side, initial encounter for closed fracture (principal); S36.031A Moderate laceration of spleen, initial encounter; Z20.822 Contact with and (suspected) exposure to COVID-19; F14.10 Cocaine abuse, uncomplicated; F15.10 Other stimulant abuse, uncomplicated; F11.10 Opioid abuse, uncomplicated; F12.10 Cannabis abuse, uncomplicated; F31.9 Bipolar disorder, unspecified; B19.20 Unspecified viral hepatitis C without hepatic coma; F17.200 Nicotine dependence, unspecified, uncomplicated; F41.9 Anxiety disorder, unspecified; V43.63XA Car passenger injured in collision with pick-up truck in traffic accident, initial encounter; Y92.410 Unspecified street and highway as the place of occurrence of the external cause; Z82.49 Family history of ischemic heart disease and other diseases of the circulatory system; Z91.030 Bee allergy status
CPT/HCPCS: 36415; 71260; 74177; 80053; 81003; 83605; 84484; 85025; 86850; 86900; 86901; 87635; 93005; 96374; 96375; 96376; 99285

== ENCOUNTER 2020-05-18 19:06 | Inpatient (IN) | payer OTHER ==
[2020-05-18] MEDS ORDERED: HYDROcodone/APAP 5-325MG 1 EACH TAB PO STA (20:29)
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
[2020-05-18] MEDS ORDERED: NALOXONE 0.4 MG/ML 1 ML VIAL IV PRN (20:40)
[2020-05-18] MEDS ORDERED: ACETAMINOPHEN TAB 325 MG TAB PO PRN (20:40)
[2020-05-18 21:18] LABS: HCT 41.5 % (39.0-53.0); HGB 14.9 gm/dL (13.0-17.5); MCH 32.2 pg (25.0-35.0); MCHC 35.9 g/dL (31.0-37.0); MCV 89.6 fL (80.0-100.0); Mean Platelet Volume 7.6; Platelet Count 206 k/uL (150-450); RBC 4.63 m/uL (4.30-5.90)
[2020-05-18 21:49] LABS: Potassium 3.5 mmol/L (3.5-5.1)
[2020-05-18 21:50] LABS: ALT 122 U/L (4-49); AST 64 U/L (17-59); African American GFR (CKD) >90 (>60 ml/min/1.73 sqM); Albumin 4.4 g/dL (3.5-5.0); Alkaline Phosphatase 73 U/L (38-126); Anion Gap 7 mmol/L; Blood Urea Nitrogen 9 mg/dL (9-20); Calcium 9.7 mg/dL (8.4-10.2); Carbon Dioxide 32 mmol/L (22-30); Chloride 100 mmol/L (98-107); Glucose 90 mg/dL (74-99); Non-African American GFR(CKD) >90 (>60 ml/min/1.73 sqM); Sodium 139 mmol/L (137-145); Total Bilirubin 0.6 mg/dL (0.2-1.3); Total Protein 7.1 g/dL (6.3-8.2)
[2020-05-18] MEDS ORDERED: fentaNYL (PF) 50 MCG/ML 2 ML AMP IVP STA (22:09)
[2020-05-19] MEDS: KETOROLAC 15 MG/ML 1 ML VIAL IVP SCH ×3 (00:44→11:22)
[2020-05-19] MEDS: oxyCODONE-APAP 5-325MG 1 EACH TAB PO PRN ×2 (00:49→09:18)
[2020-05-19] MEDS: HYDROmorphone 1 MG/ML 1 ML SYRINGE IVP PRN ×2 (05:01→07:16)
[2020-05-19 07:43] VITALS: TEMP 98.4
[2020-05-19] MEDS ORDERED: NICOTINE 21MG/24HR PATCH TRANSDERM SCH (10:00)
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
[2020-05-19 12:32] VITALS: BP 139/96; PULSE 68; RESP 16
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
== END 2020-05-19 12:21 | disposition home or self-care (01) | DRG 183 ==
LOC: EC 19:06 → 4SSUR 20:37
PROVIDERS: ADMIT Surgery; ATTEND Surgery
DX: S22.42XA Multiple fractures of ribs, left side, initial encounter for closed fracture (principal); S36.031A Moderate laceration of spleen, initial encounter; F31.9 Bipolar disorder, unspecified; F14.11 Cocaine abuse, in remission; F15.11 Other stimulant abuse, in remission; F11.11 Opioid abuse, in remission; B19.20 Unspecified viral hepatitis C without hepatic coma; F41.9 Anxiety disorder, unspecified; F12.11 Cannabis abuse, in remission; F17.200 Nicotine dependence, unspecified, uncomplicated; V43.62XA Car passenger injured in collision with other type car in traffic accident, initial encounter; Y92.410 Unspecified street and highway as the place of occurrence of the external cause; Z86.69 Personal history of other diseases of the nervous system and sense organs; Z87.438 Personal history of other diseases of male genital organs; Z86.19 Personal history of other infectious and parasitic diseases; Z98.890 Other specified postprocedural states; Z91.030 Bee allergy status; Z82.49 Family history of ischemic heart disease and other diseases of the circulatory system
CPT/HCPCS: 80053; 85027; 96374; 99284

== ENCOUNTER 2020-06-05 14:02 | Emergency (ER) | payer OTHER ==
[2020-06-05 15:10] VITALS: RESP 18; TEMP 97.7
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
[2020-06-05 18:51] LABS: Basophils # (A) 0.1 k/uL (0-0.2); Basophils % (A) 1 %; Eosinophils # (A) 0.2 k/uL (0-0.7); Eosinophils % (A) 3 %; HCT 48.2 % (39.0-53.0); HGB 17.1 gm/dL (13.0-17.5); Lymphocytes % (A) 27 %; MCH 31.9 pg (25.0-35.0); MCHC 35.5 g/dL (31.0-37.0); MCV 89.9 fL (80.0-100.0); Mean Platelet Volume 7.3; Monocytes # (A) 0.5 k/uL (0-1.0); Monocytes % (A) 6 %; Neutrophils # (A) 4.5 k/uL (1.3-7.7); Neutrophils % (A) 61 %; Platelet Count 289 k/uL (150-450); RBC 5.36 m/uL (4.30-5.90); RDW 12.2 % (11.5-15.5); WBC 7.4 k/uL (3.8-10.6)
[2020-06-05 19:01] LABS: ALT 81 U/L (4-49); AST 45 U/L (17-59); African American GFR (CKD) >90 (>60 ml/min/1.73 sqM); Albumin 4.7 g/dL (3.5-5.0); Alkaline Phosphatase 87 U/L (38-126); Amylase 89 U/L (30-110); Anion Gap 9 mmol/L; Blood Urea Nitrogen 14 mg/dL (9-20); Calcium 10.4 mg/dL (8.4-10.2); Carbon Dioxide 27 mmol/L (22-30); Chloride 102 mmol/L (98-107); Glucose 132 mg/dL (74-99); Lipase 437 U/L (23-300); Non-African American GFR(CKD) >90 (>60 ml/min/1.73 sqM); Potassium 4.2 mmol/L (3.5-5.1); Sodium 138 mmol/L (137-145); Total Bilirubin 0.5 mg/dL (0.2-1.3); Total Protein 7.5 g/dL (6.3-8.2)
[2020-06-05 20:45] LABS: Amorphous Sediment,Urine Rare /hpf; Appearance,Urine Clear (Clear); Bilirubin,Urine Negative (Negative); Blood,Urine Negative (Negative); Color,Urine Light Yellow; Glucose,Urine (UA) Negative (Negative); Ketones,Urine Negative (Negative); Leukocyte Esterase,Urine Large (Negative); Mucus,Urine Rare /hpf; Nitrite,Urine Negative (Negative); PH, Urine 6.5 (5.0-8.0); Protein,Urine Negative (Negative); RBC,Urine 1 /hpf (0-5); Specific Gravity,Urine 1.002 (1.001-1.035); Urobilinogen,Urine <2.0 mg/dL (<2.0); WBC,Urine 88 /hpf (0-5)
[2020-06-05] MEDS ORDERED: cefTRIAXone IN SWFI 1,000 MG/10 ML SYRINGE IVP STA (21:19)
[2020-06-05 21:55] VITALS: BP 112/82; PULSE 86
[2020-06-07 13:51] LABS: C. trachomatis,PCR Negative (Neg,Equiv); Chlamydia trachomatis Source Urine; N. gonorrhoeae,PCR Negative (Neg,Equiv); Neisseria Source Urine
== END 2020-06-05 21:55 | disposition home or self-care (01) ==
LOC: EC 14:02
DX: A64 Unspecified sexually transmitted disease (principal); F17.200 Nicotine dependence, unspecified, uncomplicated; F12.90 Cannabis use, unspecified, uncomplicated; F32.9 Major depressive disorder, single episode, unspecified; Z86.19 Personal history of other infectious and parasitic diseases
CPT/HCPCS: 36415; 80053; 82150; 83690; 85025; 81001; 87491; 87591; 87086; 87661; 99283; 96374; J0696